=== PATIENT | female | born 1995 | race Caucasian/White ===

== ENCOUNTER 2023-03-07 11:29 | Outpatient (REF) | payer MEDICAID, SELFPAY ==
--- NOTE | 2023-03-07 11:00 | PAPFT_PTH ---
PATIENT: Shirley Saldivar LOC: [facility] U#:[id number] AGE/SX: 27/F ROOM: RE03/07/[address]: Jodi Hdez APRN : 1995 BED: DIS: 03/07/2023 SPEC #: [id number] RECD: 03/07/23 17:46 STATUS: ELINA REQ #: [id number] EVELINA: 03/07/23 11:[address]: Jodi Hdez DEPT: [facility] Cytology RECD BY: Maggie Landers Tissues: 1 - CX/ENDOCX FOR PAP SMEARS Procedures: PAP THIN PREP/[facility] Screening Comments: [id number]
== END 2023-03-07 11:30 | disposition home or self-care (01) ==
LOC: LBO 11:29
PROVIDERS: PCP Nurse Practitioner Family; Visit Provider Nurse Practitioner Family
DX: Z12.4 Encounter for screening for malignant neoplasm of cervix (principal)
CPT/HCPCS: 88142

== ENCOUNTER 2023-04-30 01:07 | Outpatient (CLI) | payer SELFPAY ==
[2023-04-30 12:17] LABS: Calculated LDL 156 mg/dL (<100); Cholesterol 243 mg/dL (<200); HDL Cholesterol 69 mg/dL (40-60); Triglyceride 92 mg/dL (<150)
[2023-05-01 09:45] LABS: Hepatitis C Ab w Rflx HCV PCR Negative (Negative)
[2023-05-01 10:02] LABS: HIV-1/2 Ag & Ab Screen Negative (Negative)
== END 2023-04-30 01:08 | disposition home or self-care (01) ==
PROVIDERS: PCP Nurse Practitioner Family; Visit Provider Nurse Practitioner Family
DX: Z11.4 Encounter for screening for human immunodeficiency virus [HIV] (principal); Z13.220 Encounter for screening for lipoid disorders; Z11.59 Encounter for screening for other viral diseases
CPT/HCPCS: 36415; 80061; 86803; 87389

== ENCOUNTER 2024-02-18 15:50 | Outpatient (REF) | payer OTHER, SELFPAY ==
[2024-02-18 19:32] LABS: Bilirubin Negative (Negative); Blood Trace-intact (Negative); Clarity Clear (Clear); Glucose Negative (Negative); Ketones Negative (Negative); Leukocyte Esterase Trace (Negative); Nitrite Negative (Negative); Specific Gravity >= 1.030 (1.005-1.025); Urobilinogen 0.2 mg/dL (Up to 0.2)
[2024-02-18 19:52] LABS: Bacteria Rare HPF (Negative); C & S Indicated? Yes; Casts Negative LPF (Negative); Crystals Negative HPF (Negative); Epithelial Cells Rare HPF (Negative); Mucus Negative (Negative); RBC 0-2 HPF (0-2)
== END 2024-02-18 15:51 | disposition home or self-care (01) ==
LOC: LBN 15:50
PROVIDERS: PCP Nurse Practitioner Family; Visit Provider Nurse Practitioner Adult Health
DX: R30.0 Dysuria (principal); R82.89 Other abnormal findings on cytological and histological examination of urine
CPT/HCPCS: 81003; 81015; 87086

== ENCOUNTER 2024-07-23 15:31 | Outpatient (CLI) | payer OTHER, SELFPAY ==
--- NOTE | 2024-07-23 14:57 | DI.RAD_ITS ---
Exam(s) XR HIP LT COMPLETE AP PELVIS EXAM: XR HIP LT COMPLETE AP PELVIS CLINICAL HISTORY: Acute lt hip pain spontaneously started 07/04/24, M25.552. TECHNIQUE: 2D digital imaging was performed of the left hip. Views were obtained. AP pelvis and lateral left hip views were obtained. COMPARISON: No exams were available for comparison FINDINGS: BONES: No acute fracture is present. No bony destructive lesion is seen. JOINTS: No dislocation present. SOFT TISSUE: Normal. IMPRESSION: No acute abnormality. DATA REPOSITORY: RADIATION DOSE DELIVERED:
== END 2024-07-23 15:51 ==
LOC: DI 15:34
PROVIDERS: PCP Nurse Practitioner Family; Visit Provider Nurse Practitioner
DX: M25.552 Pain in left hip (principal)
CPT/HCPCS: 73502

== ENCOUNTER 2024-10-15 02:43 | Outpatient (CLI) | payer OTHER, SELFPAY ==
--- NOTE | 2024-10-15 07:00 | DI.MRI_ITS ---
Exam(s) MR LOWER JOINT LT W EXAM: MR LOWER JOINT LT W CLINICAL HISTORY: PAIN,LABRAL TEAR LT HIP,TROCHANTERIC BURSITIS LT HIP TECHNIQUE: Multiplanar multisequence MRI arthrogram of left hip was performed. COMPARISON: CR XR HIP LT COMPLETE AP PELVIS from 07/23/2024 FINDINGS: Bones: There is no evidence of a fracture or avascular necrosis. There is a tear of the posterior a nd superior labrum. No bone marrow edema is seen. The SI joints and symphysis pubis are well maintai daljit. Musculotendinous structures: Musculotendinous structures demonstrate no abnormality. Intrapelvic str uctures demonstrate no significant abnormality. Soft tissues: There is a 3.4 cm right adnexal cyst likely representing a physiologic ovarian cyst. IMPRESSION: Findings of a tear of the posterior and superior left labrum. DATA REPOSITORY:
[2024-10-15] MEDS: Gadoterate meglumine 20 ML VIAL IVP (10:49)
[2024-10-15] MEDS: Omnipaque 300 MG/ML 10 ML BTL IJ ×2 (10:51→10:52)
[2024-10-15] MEDS: Bupivacaine 0.5% Pres-Free 10 ML VIAL IJ (10:54)
[2024-10-15] MEDS: Normal Saline - Diluent 50 ML VIAL IJ (11:25)
--- NOTE | 2024-10-15 12:03 | DI.RAD_ITS ---
Exam(s) RF HIP ARTHRO RAD W CT OR MRI EXAM: RF HIP ARTHRO RAD W CT OR MRI CLINICAL HISTORY: LABRAL TEAR LT HIP,S73.192A,TROCHANTERIC BURSITIS LT HIP,M70.62 TECHNIQUE: 2D and realtime digital imaging was performed. CONTRAST MATERIAL: Water soluble contrast was administered. COMPARISON: No exams were available for comparison FINDINGS: Fluoroscopy was provided for Dr. Jeff Saucdea during the performance of a left hip arthrogram. The patient was prepped and draped in the usual sterile fashion. Local anesthesia was administered. The joint was accessed using a spinal needle and confirmed under fluoroscopy. A solution containing norm al saline, iodinated contrast and gadolinium contrast was injected into the joint. Images were obtain ed. The patient tolerated the procedure well. Final instructions were given to the patient and they l eft the department in good condition. IMPRESSION: Successful arthrogram under fluoroscopic guidance. The patient was advised to return to the emergency room if any signs of bleeding or infection occur. RADIATION DOSE DELIVERED: Ka,r=19.7 mGy Ka,r=19.7 mGy
== END 2024-10-15 03:03 ==
LOC: DI 02:43
PROVIDERS: PCP Nurse Practitioner; Visit Provider Student in an Organized Health Care Education/Training Program
DX: S73.192A Other sprain of left hip, initial encounter (principal); M70.62 Trochanteric bursitis, left hip; X58.XXXA Exposure to other specified factors, initial encounter
CPT/HCPCS: 27093; 73525; 73722; J0665

== ENCOUNTER 2024-11-05 02:13 | Outpatient (CLI) | payer OTHER, SELFPAY ==
--- NOTE | 2024-11-05 11:30 | DI.RAD_ITS ---
Exam(s) RF JOINT INJ. FLUORO GUID RAD EXAM: RF JOINT INJ. FLUORO GUID RAD CLINICAL HISTORY: L HIP PAIN, fluoro guided injection,labral tear,s73.192a. The Patient has had per sistent left hip pain. Noninvasive measures have been tried. To serve as both diagnostic and therap eutic, an injection under fluoroscopy was recommended. The risks of the procedure were discussed wit h their Orthopedic provider and the patient elected to proceed. TECHNIQUE: 2D and realtime digital imaging was performed. CONTRAST MATERIAL: Water soluble contrast was utilized. COMPARISON: No exams were available for comparison FINDINGS: The Patient was greeted in the fluoroscopy room. The correct side was identified and the consent was reviewed with the patient and was signed. The patient was properly positioned on the fluoroscopy ta ble. The left hipwas then prepped and draped. The left hip injection starting point was identified by the bony landmarks and fluoroscopy. The skin and soft tissue in the tract of the injection was an esthetized with 1% Bupivacaine. A spinal needle was then inserted into the left hip joint at the lev el of the head and neck junction under fluoroscopic guidance. A small amount of Omnipaque solution w as injected to confirm intraarticular placement. Once confirmed, the left hip was injected with 5cc of a solution containing 0.5% Bupivacaiine and 40 mg of Depo-Medrol. A bandaid was placed on the inj ection site. The patient tolerated the procedure well and left the department in good condition. IMPRESSION: Successful left hip injection. RADIATION DOSE DELIVERED: Ka,r=11.6 mGy
[2024-11-05] MEDS: methylPREDNISolone ACETATE 40 MG/ML VIAL IM (11:31)
[2024-11-05] MEDS: Omnipaque 300 MG/ML 10 ML BTL 5 ML IJ (11:32)
[2024-11-05] MEDS: Bupivacaine 0.5% Pres-Free 10 ML VIAL 5 ML IJ (11:33)
== END 2024-11-05 02:33 ==
LOC: DI 02:13
PROVIDERS: PCP Nurse Practitioner; Visit Provider Student in an Organized Health Care Education/Training Program
DX: S73.192A Other sprain of left hip, initial encounter (principal); M25.552 Pain in left hip; X58.XXXA Exposure to other specified factors, initial encounter
CPT/HCPCS: 20610; 77002; J0665; J1010

== ENCOUNTER 2024-12-22 13:33 | Outpatient (CLI) | payer OTHER, SELFPAY ==
--- NOTE | 2024-12-22 13:30 | RT.EKG_ITS ---
APPROVED REPORT Exam: Resting ECG Reason for Exam: Potential QT prolongtn c hydroxyzine/escitalopram Patient Location: O HR:80 bpm ECG Measurements Heart Rate 80 AXIS [place] 141 P 23 QRSd 69 QRS 17 QT 356 T 14 QTc 411 Conclusion Sinus rhythm...normal P axis, V-rate 50- 99 Low voltage, precordial leads...precordial leads <1.0mV Baseline wander in lead(s) V6 Otherwise normal ECG
== END 2024-12-22 13:34 | disposition home or self-care (01) ==
LOC: DI.KIM 13:36
PROVIDERS: PCP Nurse Practitioner; Visit Provider Family Medicine
DX: R94.31 Abnormal electrocardiogram [ECG] [EKG] (principal)
CPT/HCPCS: 93010

== ENCOUNTER 2025-02-25 14:57 | Outpatient (CLI) | payer OTHER, SELFPAY ==
--- NOTE | 2025-02-25 | DI.RAD_ITS ---
Exam(s) XR ANKLE RT COMPLETE EXAM: XR ANKLE RT COMPLETE CLINICAL HISTORY: SPRAIN RT ANKLE, S93.401A. TECHNIQUE: 2D digital imaging was performed of the right ankle. Three images were obtained. AP, lateral and oblique views were obtained. COMPARISON: No exams were available for comparison FINDINGS: BONES: No acute fracture is present. No bony destructive lesion is seen. JOINTS: The ankle mortise is normally aligned. SOFT TISSUE: Normal. IMPRESSION: There is no acute fracture or dislocation. DATA REPOSITORY: RADIATION DOSE DELIVERED:
== END 2025-02-25 15:17 ==
PROVIDERS: PCP Nurse Practitioner; Visit Provider Physician Assistant Medical
DX: S93.401D Sprain of unspecified ligament of right ankle, subsequent encounter (principal); X58.XXXD Exposure to other specified factors, subsequent encounter
CPT/HCPCS: 73610

== ENCOUNTER → 2025-05-04 02:18 | Outpatient (CLI) | payer OTHER, SELFPAY ==
--- NOTE | 2025-05-04 06:00 | DI.MRI_ITS ---
Exam(s) MR THORACIC SPINE WO EXAM: MR THORACIC SPINE WO CLINICAL HISTORY: increasing pain,CHRONIC UPPER BACK PAIN,M54.9,G89.29 TECHNIQUE: Multiplanar multisequence MRI of the thoracic spine was performed without intravenous contrast. COMPARISON: No exams were available for comparison FINDINGS: OSSEOUS: There are no thoracic vertebral fractures. No abnormal vertebral marrow signal. There are no ominous osseous lesions in the thoracic vertebrae. THORACIC SPINAL CORD: There is no abnormal signal in the thoracic spinal cord and no evidence of focal cord atrophy nor focal cord swelling. There is no evidence of syringomyelia nor significant spinal cord dysraphism. There is no evidence of mass at the conus medullaris. The position of the conus medullaris is at L1 level. SIGNIFICANT INDIVIDUAL LEVEL FINDINGS: There are no disc herniations nor disc space narrowing.. No significant foraminal stenosis. No significant facet arthropathy. PARASPINAL TISSUES: No significant masses nor abnormal fluid collections evident. IMPRESSION: 1. No significant findings on this MRI scan of the thoracic spinal column. DATA REPOSITORY:
== END ==
PROVIDERS: Visit Provider Family Medicine
DX: M54.9 Dorsalgia, unspecified (principal); G89.29 Other chronic pain
CPT/HCPCS: 72146